=== PATIENT | male | born 1990 | race Caucasian/White ===

== ENCOUNTER 2016-12-30 00:32 | Emergency (ER) | payer SELFPAY ==
[~2016-12-30] VITALS: Ht 172.7 cm; Wt 77.1 kg
[~2016-12-30 00:32] MED LIST: NO MEDICATIONS; TAMIFLU75 M1 PO
== END 2016-12-30 01:02 | disposition home or self-care (01) ==
LOC: SED 00:32
DX: H10.13 Acute atopic conjunctivitis, bilateral (principal); F17.200 Nicotine dependence, unspecified, uncomplicated; Z79.899 Other long term (current) drug therapy
CPT/HCPCS: 99283